=== PATIENT | female | born 1995 | race Caucasian/White ===

== ENCOUNTER 2019-06-13 07:26 | Inpatient (IN) | payer MEDICAID ==
[2019-06-13] MEDS ORDERED: CARBOPROST 250 MCG INJ IM ×2 (08:00→12:00)
[2019-06-13] MEDS ORDERED: CEFAZOLIN 2 GM/50 ML (PMX) 50 ML IVPB (08:00)
[2019-06-13] MEDS ORDERED: OXYTOCIN 30 UNITS/LR 500 ML IV ×3 (08:00→12:00)
[2019-06-13] MEDS ORDERED: MISOPROSTOL 200 MCG TAB PR ×2 (08:00→12:00)
[2019-06-13] MEDS ORDERED: METHYLERGONOVINE 0.2 MG INJ IM ×2 (08:00→12:00)
[2019-06-13] MEDS: LACTATED RINGER'S 1,000 ML IV (08:16)
[2019-06-13 08:32] LABS: ADD MAN DIFF? NO
[2019-06-13 08:35] LABS: WHITE BLOOD COUNT 5.4 10^3/ul (4.8-10.8)
[2019-06-13 08:35] LABS: BASOPHILS % 0.4 % (0.0-2.0); EOSINOPHILS % 0.4 % (0.0-7.0); HEMATOCRIT 35.7 % (37.0-47.0); HEMOGLOBIN 11.5 g/dl (12.0-16.0); LYMPHOCYTES # 1.7 10^3/ul (0.8-2.9); LYMPHOCYTES % 32.4 % (15.0-51.0); MEAN CORPUSCULAR HEMOGLOBIN 26.6 pg (29.0-33.0); MEAN CORPUSCULAR HGB CONC 32.2 g/dl (32.0-37.0); MEAN CORPUSCULAR VOLUME 82.4 fl (82.0-101.0); MONOCYTE # 0.4 10^3/ul (0.3-0.9); NEUTROPHIL # 3.1 10^3/ul (1.6-7.5); NEUTROPHILS % 58.4 % (39.0-77.0); PLATELET COUNT 301 10^3/UL (140-415); RED BLOOD COUNT 4.33 10^6/ul (4.20-5.40); RED CELL DISTRIBUTION WIDTH 14.7 % (11.5-14.5)
[2019-06-13 08:54] LABS: INR 1.03; PARTIAL THROMBOPLASTIN TIME 29.3 Sec (23.0-35.0); PROTIME 13.6 Sec (11.9-14.9); PT RATIO 1.1
[2019-06-13] MEDS: LACTATED RINGER'S 500 ML IV (09:34)
[2019-06-13] MEDS: CITRIC ACID/NA CITRATE 30 ML CUP PO (09:35)
[2019-06-13] MEDS: ONDANSETRON 4 MG INJ IV (09:35)
[2019-06-13] MEDS ORDERED: METOCLOPRAMIDE 10 MG INJ (10:16)
[2019-06-13] MEDS ORDERED: morphine SULFATE/PF (10 MG/10 ML) INJ (10:16)
[2019-06-13] MEDS ORDERED: FENTAnyl 50 MCG/ML VIAL (10:16)
[2019-06-13] MEDS ORDERED: OXYTOCIN 10 UNIT INJ (10:17)
[2019-06-13] MEDS: CEFAZOLIN 2 GM/50 ML (PMX) 50 ML IVPB ×2 (10:26→18:24)
[2019-06-13] MEDS ORDERED: hydrALAzine 20 MG INJ IV (11:30)
[2019-06-13] MEDS ORDERED: LABETALOL HCL 20MG INJ IV (11:30)
[2019-06-13] MEDS ORDERED: MEPERIDINE 25 MG INJ IV (11:30)
[2019-06-13] MEDS ORDERED: MIDAZOLAM 1 MG/ML 2 ML INJ IV (11:30)
[2019-06-13] MEDS ORDERED: IPRATROPIUM (NEB) 0.5 MG/2.5 ML AMP HHN (11:30)
[2019-06-13] MEDS ORDERED: NALBUPHINE HCL (10 MG/1 ML) INJ IV (11:30)
[2019-06-13] MEDS ORDERED: DIPHENHYDRAMINE 50 MG INJ IV ×2 (11:30)
[2019-06-13] MEDS ORDERED: FENTAnyl 50 MCG/ML VIAL IV ×3 (11:30)
[2019-06-13] MEDS ORDERED: morphine 2 MG INJ IV ×2 (11:30)
[2019-06-13] MEDS ORDERED: NALOXONE (0.4 MG/ML) INJ IV (11:30)
[2019-06-13] MEDS ORDERED: EPHEDrine 25 MG/5 ML SYG IV (11:30)
[2019-06-13] MEDS ORDERED: TRIMETHOBENZAMIDE 100 MG/ML VIAL IM ×2 (11:30)
[2019-06-13] MEDS ORDERED: ONDANSETRON 4 MG INJ IV ×2 (11:30)
[2019-06-13] MEDS ORDERED: ALBUTEROL 0.083% (NEB) 2.5 MG/3 ML AMP HHN (11:30)
[2019-06-13] MEDS ORDERED: HYDROmorphONE 1 MG/5 ML IV SYRINGE IV ×3 (11:30)
[2019-06-13] MEDS ORDERED: NACL 0.9% 3 ML SYG IV (12:00)
[2019-06-13] MEDS: OXYTOCIN 30 UNITS/LR 500 ML IV ×2 (12:00→15:05)
[2019-06-13] MEDS ORDERED: OXYCODONE/ACETAMINOPHEN (5/325) TAB PO (12:00)
[2019-06-13] MEDS ORDERED: IBUPROFEN 800 MG TAB PO (14:00)
[2019-06-13] MEDS: KETOROLAC 30 MG INJ IV (15:05)
[2019-06-13] MEDS: LANOLIN HPA 1 PKT TOP (15:06)
[2019-06-13 20:21] LABS: RAPID PLASMA REAGIN NONREACTIVE (NR)
[2019-06-14] MEDS: LACTATED RINGER'S 1,000 ML IV ×2 (01:24→09:00)
[2019-06-14] MEDS: KETOROLAC 30 MG INJ IV (01:24)
[2019-06-14] MEDS: CEFAZOLIN 2 GM/50 ML (PMX) 50 ML IVPB ×2 (02:30→10:15)
[2019-06-14 07:10] LABS: ADD MAN DIFF? NO
[2019-06-14 07:21] LABS: WHITE BLOOD COUNT 6.6 10^3/ul (4.8-10.8)
[2019-06-14 07:21] LABS: BASOPHILS % 0.3 % (0.0-2.0); EOSINOPHILS % 0.5 % (0.0-7.0); HEMATOCRIT 29.3 % (37.0-47.0); HEMOGLOBIN 9.4 g/dl (12.0-16.0); LYMPHOCYTES # 1.4 10^3/ul (0.8-2.9); LYMPHOCYTES % 21.7 % (15.0-51.0); MEAN CORPUSCULAR HGB CONC 32.1 g/dl (32.0-37.0); MEAN CORPUSCULAR VOLUME 84.2 fl (82.0-101.0); MEAN PLATELET VOLUME 10.4 fl (7.4-10.4); MONOCYTE # 0.4 10^3/ul (0.3-0.9); MONOCYTES % 6.7 % (0.0-11.0); NEUTROPHIL # 4.6 10^3/ul (1.6-7.5); NEUTROPHILS % 70.5 % (39.0-77.0); PLATELET COUNT 220 10^3/UL (140-415); RED BLOOD COUNT 3.48 10^6/ul (4.20-5.40); RED CELL DISTRIBUTION WIDTH 15.2 % (11.5-14.5)
[2019-06-14] MEDS: IBUPROFEN 800 MG TAB PO ×2 (14:30→21:52)
[2019-06-14] MEDS: FERROUS SULFATE (EC) 325 MG TAB PO (21:53)
[2019-06-15] MEDS: OXYCODONE/ACETAMINOPHEN (5/325) TAB PO (03:56)
[2019-06-15] MEDS: IBUPROFEN 800 MG TAB PO ×3 (06:21→21:46)
[2019-06-15] MEDS: FERROUS SULFATE (EC) 325 MG TAB PO ×2 (09:21→21:46)
[2019-06-16] MEDS: IBUPROFEN 800 MG TAB PO ×2 (06:45→14:27)
[2019-06-16] MEDS: FERROUS SULFATE (EC) 325 MG TAB PO (08:52)
== END 2019-06-16 16:10 | disposition home or self-care (01) | DRG 785 ==
LOC: L-D 07:26 → PP1 14:00
PROVIDERS: Obstetrics & Gynecology
PROC: 10D00Z1 Extraction of Products of Conception, Low, Open Approach (ICD-10-PCS; principal; 2019-06-13 09:00)
PROC: 0UT70ZZ Resection of Bilateral Fallopian Tubes, Open Approach (ICD-10-PCS; 2019-06-13 09:00)
DX: O65.5 Obstructed labor due to abnormality of maternal pelvic organs (principal); O34.211 Maternal care for low transverse scar from previous cesarean delivery; Z37.0 Single live birth; Z30.2 Encounter for sterilization; Z3A.39 39 weeks gestation of pregnancy
CPT/HCPCS: 85025; 85610; 85730; 86592; 86850; 86900; 86901; 88302; 99464